=== PATIENT | female | born 1955 | race Caucasian/White ===

== ENCOUNTER 2024-04-22 08:02 | Outpatient (CLI) | payer MEDICARE, OTHER | END 2024-04-22 08:03 | disposition home or self-care (01) | LOC: BICCT 08:02 | PROVIDERS: ATTEND Internal Medicine Gastroenterology | DX: Z12.11 Encounter for screening for malignant neoplasm of colon (principal); N81.4 Uterovaginal prolapse, unspecified; R63.5 Abnormal weight gain; R91.1 Solitary pulmonary nodule; K59.09 Other constipation; K76.0 Fatty (change of) liver, not elsewhere classified; N83.8 Other noninflammatory disorders of ovary, fallopian tube and broad ligament; Z90.710 Acquired absence of both cervix and uterus | CPT/HCPCS: 74177; 82565 ==